=== PATIENT | male | born 1985 | race Caucasian/White ===

== ENCOUNTER 2017-11-25 20:31 | Emergency (ER) | payer SELFPAY ==
[2017-11-25] MEDS ORDERED: HYDROcodone/Acetaminophen 5/325 mg Tablet ONE (20:53)
[2017-11-25] MEDS ORDERED: Amlodipine 5 MG TAB ONE (22:08)
--- NOTE | 2017-11-25 23:20 | RAD ---
LEFT HAND THREE VIEWS: 11/25/17 No fracture, dislocation, or joint space abnormality was seen. All bones appeared intact. IMPRESSION: No acute finding. POS: HOME
--- NOTE | 2017-11-25 23:22 | RAD ---
LEFT FOOT THREE VIEWS: 11/25/17 A nondisplaced fracture of the cuboid is seen near its junction with the fourth and fifth metatarsal bases. There does not appear to be any displacement. The tarsal relationships are normal. All other b ones appeared intact. IMPRESSION: Cuboid fracture. Code T POS: HOME
== END 2017-11-25 22:12 | disposition home or self-care (01) ==
LOC: BURERS 20:31
DX: S93.432A Sprain of tibiofibular ligament of left ankle, initial encounter (principal); F17.210 Nicotine dependence, cigarettes, uncomplicated; W11.XXXA Fall on and from ladder, initial encounter

== ENCOUNTER 2019-09-25 10:26 | Emergency (ER) | payer SELFPAY | END 2019-09-25 13:10 | disposition home or self-care (01) | LOC: BURERS 10:26 | DX: R21 Rash and other nonspecific skin eruption (principal); I10 Essential (primary) hypertension; F17.210 Nicotine dependence, cigarettes, uncomplicated | CPT/HCPCS: 99281 ==